=== PATIENT | female | born 1960 | race Caucasian/White ===

== ENCOUNTER → 2024-05-21 06:32 | Outpatient (REF) | payer OTHER, SELFPAY | LOC: RAD 06:32 | PROVIDERS: ATTENDING PHYSICIAN Podiatrist Foot & Ankle Surgery; FAMILY PHYSICIAN Nurse Practitioner Family | DX: I73.9 Peripheral vascular disease, unspecified (principal); I70.221 Atherosclerosis of native arteries of extremities with rest pain, right leg | CPT/HCPCS: 93922; 93925 ==

== ENCOUNTER → 2024-05-28 10:23 | Outpatient (REF) | payer OTHER, SELFPAY ==
[2024-05-28 11:48] LABS: Blood Urea Nitrogen 15 mg/dl (7-17); Calcium 9.2 mg/dl (8.4-10.2); Carbon Dioxide 27 mmol/L (22-30); Chloride 105 mmol/L (98-107); Glucose 100 mg/dl (70-99); Potassium 4.7 mmol/L (3.5-5.1); Sodium 140 mmol/L (135-145); eGFR > 60.00
== END ==
LOC: REG 10:23
PROVIDERS: ATTENDING PHYSICIAN Registered Nurse; FAMILY PHYSICIAN Nurse Practitioner Family
DX: I77.9 Disorder of arteries and arterioles, unspecified (principal)
CPT/HCPCS: 36415; 80048

== ENCOUNTER → 2024-09-27 11:16 | Outpatient (REF) | payer BC, SELFPAY | LOC: RAD 11:16 | PROVIDERS: ATTENDING PHYSICIAN Surgery Vascular Surgery; FAMILY PHYSICIAN Nurse Practitioner Family | DX: I77.9 Disorder of arteries and arterioles, unspecified (principal) | CPT/HCPCS: 93922 ==

== ENCOUNTER → 2025-04-04 08:08 | Outpatient (REF) | payer BC, SELFPAY | LOC: RAD 08:08 | PROVIDERS: ATTENDING PHYSICIAN Surgery Vascular Surgery; FAMILY PHYSICIAN Nurse Practitioner Family | DX: I77.9 Disorder of arteries and arterioles, unspecified (principal) | CPT/HCPCS: 93922 ==